=== PATIENT | male | born 1975 | race Two or more races ===

== ENCOUNTER 2022-11-26 06:13 | Emergency (ER) | payer BC ==
[2022-11-26] MEDS ORDERED: Loperamide 2 MG Cap PO STA (07:24)
[2022-11-26] MEDS ORDERED: Sodium Chloride 0.9% 1,000 ML IV ONE (07:24)
== END 2022-11-26 09:19 | disposition home or self-care (01) ==
LOC: JD.ED 06:13
DX: K52.9 Noninfective gastroenteritis and colitis, unspecified (principal); B19.20 Unspecified viral hepatitis C without hepatic coma; F10.10 Alcohol abuse, uncomplicated; E83.42 Hypomagnesemia; E66.9 Obesity, unspecified; Z68.39 Body mass index [BMI] 39.0-39.9, adult
CPT/HCPCS: 36415; 80053; 83690; 83735; 85025; 96360; 99284; A9270; J7030; 99283

== ENCOUNTER 2024-11-14 05:54 | Emergency (ER) | payer SELFPAY ==
[2024-11-14 06:37] LABS: BASOPHILS PERCENT AUTO 0.4 % (0.0-1.0); EOSINOPHILS ABSOLUTE AUTO 0.1 K/mm3 (0.0-0.4); EOSINOPHILS PERCENT AUTO 0.8 % (0.0-6.0); HEMATOCRIT 49.8 % (42.0-52.0); HEMOGLOBIN 17.9 gm/dl (14.0-18.0); IMMATURE GRAN ABSOLUTE AUTO 0.05 K/mm3 (0.00-0.05); IMMATURE GRAN PERCENT AUTO 0.6 % (0.0-0.4); LYMPHOCYTES ABSOLUTE AUTO 1.9 K/mm3 (1.0-4.8); LYMPHOCYTES PERCENT AUTO 20.8 % (24.0-44.0); MEAN CORPUSCULAR HEMOGLOBIN 31.5 pg (28.0-32.0); MEAN CORPUSCULAR HGB CONC 35.9 g/dl (32.0-36.0); MEAN CORPUSCULAR VOLUME 87.5 fl (83.0-99.0); MEAN PLATELET VOLUME 9.9 fl (9.4-12.4); MONOCYTES ABSOLUTE AUTO 0.4 K/mm3 (0.0-0.8); MONOCYTES PERCENT AUTO 4.6 % (0.0-8.0); NEUTROPHILS ABSOLUTE AUTO 6.5 K/mm3 (1.8-7.7); NEUTROPHILS PERCENT AUTO 72.8 % (41.0-71.0); PLATELET COUNT,PLT 212 K/mm3 (150-400); RED BLOOD CELL COUNT 5.69 M/mm3 (4.52-5.90); WHITE BLOOD CELL COUNT,WBC 8.95 K/mm3 (3.9-11.3)
[2024-11-14] MEDS: Iopamidol 612 MG/ML 30 ML SDV IVPUSH ONE (06:52)
[2024-11-14] MEDS: Iopamidol 612 MG/ML 100 ML Bottle IVPUSH ONE (06:52)
[2024-11-14] MEDS: Sodium Chloride 0.9% 10 ML Syringe FLUSH PRN (06:52)
[2024-11-14] MEDS: Sodium Chloride 0.9% 1,000 ML IV ONE (06:59)
[2024-11-14 07:02] LABS: A/G RATIO 1.1 (1-2); ALBUMIN 4.3 g/dl (3.4-5.0); ANION GAP 14.9 (5-15); BILIRUBIN TOTAL 0.6 mg/dL (0.2-1.0); BUN/CREATININE RATIO 17.3 (14-18); CREATININE 1.1 mg/dL (0.7-1.3); EST CRCL DRUG DOSING (CG) 85.57 mL/min; MAGNESIUM 1.6 mg/dL (1.8-2.4); POTASSIUM,K 3.9 mEq/L (3.5-5.1); PROTEIN TOTAL,TP 8.1 g/dl (6.4-8.2)
[2024-11-14 07:06] LABS: CALCIUM 10.4 mg/dL (8.5-10.1)
[2024-11-14 07:06] LABS: APPEARANCE,URINE CLEAR (Clear); BILIRUBIN,URINE NEGATIVE (Negative); COLOR,URINE YELLOW (Yellow); GLUCOSE,URINE NEGATIVE (Negative); KETONES,URINE 1+ (Negative); LEUKOCYTE ESTERASE,URINE NEGATIVE (Negative); NITRITE,URINE NEGATIVE (Negative); OCCULT BLOOD,URINE NEGATIVE (Negative); PH,URINE 6.5 (5.0-8.0); PROTEIN,URINE 1+ (Negative); UROBILINOGEN,URINE 0.2 (0.2-1.0)
[2024-11-14] MEDS ORDERED: Furosemide 40 MG/4 ML VIAL IVPUSH ONE (07:12)
[2024-11-14 07:13] LABS: BACTERIA,URINE NOT SEEN /hpf (FEW); RBC,URINE NOT SEEN /hpf (0-5); SQUAMOUS EPITHELIAL CELLS,UR 0-5 /hpf (0-5); WBC,URINE 0-5 /hpf (0-5)
[2024-11-14 07:14] LABS: MUCUS,URINE NOT SEEN /hpf (FEW)
[2024-11-14] MEDS: Magnesium Oxide 400 MG Tab PO ONE (07:25)
[2024-11-14] MEDS: Famotidine 20 MG Tab PO ONE (07:28)
[2024-11-14] MEDS: Alum Hydrox/Mag Hydrox/Simeth 30 ML, Lidocaine 2% 15 ML PO ONE (07:29)
[2024-11-14] MEDS: Ketorolac 60 MG/2 ML SDV IM ONE (08:35)
== END 2024-11-14 08:37 | disposition home or self-care (01) ==
LOC: JD.ED 05:54
DX: R10.11 Right upper quadrant pain (principal); R10.12 Left upper quadrant pain; I10 Essential (primary) hypertension; E83.42 Hypomagnesemia; E83.52 Hypercalcemia; E66.9 Obesity, unspecified; Z68.41 Body mass index [BMI] 40.0-44.9, adult; Z87.19 Personal history of other diseases of the digestive system; Z79.899 Other long term (current) drug therapy
CPT/HCPCS: 36415; 74177; 80053; 81001; 83690; 83735; 85025; 96360; 96372; 99284; A9270; J1885; J7030; Q9967